=== PATIENT | male | born 1965 | race Caucasian/White ===

== ENCOUNTER 2023-10-01 06:53 | Outpatient (CLI) | payer OTHER, SELFPAY ==
--- NOTE | 2023-10-01 06:59 | CT_ITS ---
FINAL REPORT TECHNIQUE: Axial CT images were performed through the head. Coronal reformatted images were submitted. This study was performed with techniques to keep radiation doses as low as reasonably achievable (ALARA). Individualized dose reduction techniques using automated exposure control or adjustment of mA and/or kV according to the patient's size were employed. CLINICAL HISTORY: PARESTHESIA OF LEFT UPPER LIMB FINDINGS: Mild atrophy is noted. There are small foci of abnormal decreased attenuation in the deep white matter of the left hemisphere probably related to chronic microvascular change. The ventricles are normal in size. There is no evidence of hemorrhage. There is no mass or edema identified. There is no abnormal extra-axial fluid seen. The sinuses are well aerated. IMPRESSION: Chronic changes with no acute intracranial process. Reviewed, Interpreted and Dictated by Abhi Pizarro MD Transcribed by Debora Givens Authenticated and [facility]
== END 2023-10-01 23:59 ==
LOC: RAD 06:53
PROVIDERS: Visit Provider Plastic Surgery
DX: R20.2 Paresthesia of skin (principal)
CPT/HCPCS: 70450

== ENCOUNTER 2024-11-10 15:23 | Emergency (ER) | payer BC, SELFPAY ==
[2024-11-10] VITALS (7 sets, daily range): BP systolic 132–143; BP diastolic 86–96; PULSE 52–75; RESP 13–17; TEMP 36.7–36.8; O2SAT 95–98; BMI 28.2
--- NOTE | 2024-11-10 15:36 | ECG_ITS ---
APPROVED REPORT Exam: Resting ECG HR:57 bpm ECG Measurements Heart Rate 57 AXES PA 185 P 53 QRSd 101 QRS -22 QT 420 T 41 QTc 414 Conclusion SINUS BRADYCARDIA LOW QRS VOLTAGE IN PRECORDIAL LEADS [QRS DEFLECTION < 1.0 mV IN CHEST LEADS] INCOMPLETE RIGHT BUNDLE BRANCH BLOCK [90+ ms QRS DURATION, TERMINAL R IN V1/V2, 40+ ms S IN I/aVL/V4/V5/V6] POSSIBLE ANTERIOR MYOCARDIAL INFARCTION , PROBABLY OLD [30 ms Q WAVE IN V3/V4, OR R < 0.2 mV IN V4] No STEMI Electronically signed by : CARMEN MOLINA, 11/12/2024 03:22:51
--- NOTE | 2024-11-10 15:45 | CT_ITS ---
PROCEDURE INFORMATION: Exam: CT Head Without Contrast Exam date and time: 11/10/2024 4:09 PM Age: 59 years old Clinical indication: Dizziness; Additional info: Diziness/light headed TECHNIQUE: Imaging protocol: Computed tomography of the head without contrast. Radiation optimization: All CT scans at this facility use at least one of these dose optimization techniques: automated exposure control; mA and/or kV adjustment per patient size (includes targeted exams where dose is matched to clinical indication); or iterative reconstruction. COMPARISON: CT HEAD/BRAIN WO CON 01/10/2023 07:03 FINDINGS: Brain: Normal. No hemorrhage. Unremarkable white matter. No mass effect. Cerebral ventricles: No ventriculomegaly. Paranasal sinuses: Partially imaged mucosal thickening in the left maxillary sinus. Mastoid air cells: Visualized mastoid air cells are well aerated. Bones: Unremarkable. No acute fracture. Soft tissues: Unremarkable. IMPRESSION: No acute intracranial abnormality.
--- NOTE | 2024-11-10 15:49 | ED_ITS ---
Discharge Plan Disposition Patient Disposition: Home, Self-Care Prescriptions Prescriptions: No Action prednisone 10 MG tablets,dose pack 10 mg PO DAILY Qty: 42 0RF Rx Instructions: 6 po daily for 2 days, 5 po daily for 2 days, 4 po daily for 2 days, 3 po daily for 2 days, 2 po daily for 2 days, 1 po daily for 2 days. famciclovir 500 MG tablet 500 mg PO TID Qty: 21 0RF Referrals Follow up/Referrals: Carole Hadley APRN [Primary Care Provider] - See instructions Activity Restrictions/Add. Instructions Additional Instructions/Restrictions: No emergent medical condition identified today including cardiopulmonary and vascular systems that were evaluated. Please return with any significant worsening of your symptoms otherwise follow-up closely with your primary care doctor. Clinical Impressions Clinical Impression: Light headedness Print Language Print Language: Setswana Discharge ED Provider: Matilda Burns General Adult HPI General Chief complaint: Neuro Symptoms/Deficit Stated complaint: dizziness, stumbling, sent by doctor for CT Time Seen by Provider: 11/10/24 15:40 History of Present Illness HPI narrative: Patient is a 59-year-old male presenting today with lightheadedness. Was in his normal state of health and woke up this morning and felt as though he was drunk. Stated that he was having difficulty walking and he was stumbling. Denies any symptoms of this in the past. Denies any weakness or numbness in his extremities. 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 Patient went to his primary care doctor today who subsequently sent him in the emergency department. Related Data Previous Rx's ?Medication ?Instructions ?Recorded famciclovir 500 mg tablet 500 mg PO TID #21 tabs 05/09/18 prednisone 10 mg tablets in a dose 10 mg PO DAILY ##42 05/09/18 pack Allergies Allergy/AdvReac Type Severity Reaction Status Date / Time codeine (CODEINE) Allergy Unknown NA-NAUSEA Verified 05/09/18 16:35 [facility] Disclaimer: The information contained in this section may have been updated after the patient was seen, as this information can be updated by other users. Social History Smoking Status: Former smoker alcohol intake: never current occupational status: employed Travel in the last 8 weeks: None Have you lived/traveled outside [place] in past 30 days?: No Contact w/someone who lives/traveled outside US past 30 days?: No Exposure to someone with infectious disease in past 14 days?: No Do you have a fever (greater than 100.4 F or 38 C)?: No Have you tested positive for COVID-19: No Exposed to someone with COVID-19 in past 14 days?: No Do you have a sore throat?: No Do you have a cough?: No Do you have any weakness?: No Do you have any diarrhea?: No Are you experiencing any unusual bleeding?: No Do you have any muscle aches/pain?: No Do you have any abdominal pain?: No Are you experiencing loss of taste or smell?: No Other Medical History Have you received the Flu Vaccine for this season: No Have you received the Pneumonia Vaccine: No ROS Obtained: Yes All systems reviewed & no additional complaints except as documented Physical Exam General General appearance: alert and in no apparent distress Respiratory Respiratory exam: Present normal lung sounds bilaterally; Absent respiratory distress Cardiovascular Cardiovascular exam: Present regular rate and normal rhythm Neurological Exam Neurological exam: Present alert, oriented X3, CN II-XII intact, normal gait and other (Patient appears to have normal finger-nose [id number] bilaterally normal Romberg and normal gait); Absent motor sensory deficit Medical Decision Making Medical Records Screening: Per USPSTF and CDC recommendations, given the prevalence of disease in our region, it is our hospital?s policy to screen for HIV and viral Hepatitis for all patients aged 18 and over and those with ongoing risk factors. Samuel Inquiry Pt receiving controlled substance: No Vital Signs: 11/10/24 15:30 11/10/24 15:49 11/10/24 16:00 Temperature 98.2 F Temperature Source Oral Pulse Rate 59 L 56 L Pulse Rate [Left Radial] 62 Respiratory Rate 13 15 Blood Pressure 143/96 H 132/89 Blood Pressure [Right Arm] 143/96 H Blood Pressure Mean [Right Arm] 111 02 Sat by Pulse Oximetry 97 97 96 11/10/24 16:30 11/10/24 17:00 Temperature Temperature Source Pulse Rate 55 L 52 L Pulse Rate [Left Radial] Respiratory Rate 15 17 Blood Pressure 135/86 137/90 Blood Pressure [Right Arm] Blood Pressure Mean [Right Arm] 02 Sat by Pulse Oximetry 96 95 Lab Data Lab results reviewed: Yes I reviewed the patient's lab results. Lab Results 11/10/24 15:30: POC Glucose 107 11/10/24 15:38: WBC 6.6, RBC 6.17, Hgb 16.7, Hct 49.1, MCV 79.6 L, MCH 27.1, MCHC 34.0, RDW 13.2, Plt Count 195, MPV 10.2, Neut % (Auto) 66.4, Lymph % (Auto) 19.8, [place] % (Auto) 9.8 H, Eos % (Auto) 3.0, Baso % (Auto) 0.8, Neut # (Auto) 4.4, Lymph # (Auto) 1.3, [place] # (Auto) 0.7, Eos # (Auto) 0.2, Baso # (Auto) 0.1, Sodium 142, Potassium 3.9, Chloride 102, Carbon Dioxide 29, Anion Gap 14.9, BUN 13, Creatinine 0.90, Estimated Creat Clear 116, Estimated GFR 86, Est GFR ( Amer) 104, Glucose 108 H, Calcium 9.8, Phosphorus 3.0, Magnesium 2.3, Total Bilirubin 1.0, AST 37, ALT 21, Alkaline Phosphatase 91, Troponin I < 0.01, Total Protein 8.3 H, Albumin 4.8, Globulin 3.5 H, Albumin/Globulin Ratio 1.4, HCV Ab NICOLA w/Rflx PCR Qn Negative, HIV Ag/Ab Combo Qual Negative 11/10/24 15:38 11/10/24 15:38 Orders (Tests/Meds): ED MEDICATIONS Discontinued Medications Generic Name Dose Route Start Last Admin Trade Name Freq PRN Reason Stop Dose Admin Lactated Ringer's 1,000 mls @ 999 mls/hr 11/10/24 15:45 11/10/24 15:55 Lactated Ringer's 1000 Ml Bag IV 11/10/24 16:45 999 mls/hr .Q1H1M MISTY Administration Iopamidol 80 ml 11/10/24 16:18 11/10/24 16:19 Iopamidol-370 (76%);100ml Bottle IV 11/10/24 16:19 80 ml ONCE ONE Administration Sodium Chloride 50 ml 11/10/24 16:18 11/10/24 16:18 0.9 % Sodium Chloride 50 Ml Vial IV 11/10/24 16:19 50 ml ONCE ONE Administration Sodium Chloride 10 ml 11/10/24 16:18 11/10/24 16:18 Sodium Chloride 0.9% 10ml Syr (Rad Only) IV 11/10/24 16:19 10 ml ONCE ONE Administration ORDERS Category Date Time Status CT angio head Stat Cat Scan 11/10/24 15:[address] angio neck Stat Cat Scan 11/10/24 15:[address] head/brain wo con Stat Cat Scan 11/10/24 15:45 Completed CBC w/Auto Diff [Complete Blood Count Auto Diff] Stat Lab 11/10/24 15:38 Completed CMP [Comprehensive Metabolic Panel] Stat Lab 11/10/24 15:38 Completed HIV Combo Stat Lab 11/10/24 15:38 Completed Hepatitis C Ab Qual. W/ RFX Stat Lab 11/10/24 15:38 Completed Magnesium Stat Lab 11/10/24 15:38 Completed POC Glucose,Bedside Routine Lab 11/10/24 15:30 Completed Phosphorous Stat Lab 11/10/24 15:38 Completed Trop I [Troponin I] Stat Lab 11/10/24 15:38 Completed Troponin I Q3H Lab 11/10/24 19:00 Ordered Troponin I Q3H Lab 11/10/24 22:00 Ordered Medical Decision Narrative: 59-year-old with above history and physical. Objectively he appears to have a normal exam. However he describes a feeling of being drunk and staggering when he walks even though not able to reproduce this on exam I would be very concerned about posterior fossa abnormalities and vertebrobasilar insufficiency. Additionally could have electrolyte abnormalities cardiovascular involvement, dehydration etc. Patient does not appear to have any infectious symptoms at the moment. Will get a CT angio of his head neck and noncontrasted CT scan of his head. EKG was unremarkable. Will reassess shortly. CT scan of the patient's head and CT angiography of the head and neck were performed which I personally interpreted which show no evidence of any acute pathology. Radiology reads consistent with this. Labs unremarkable EKG unremarkable on reassessment patient is improved serial cardiopulmonary and neurologic exams are normal. Overall this is nonspecific. Remain some diagnostic uncertainty but is possible that he was mildly dehydrated is the only intervention that was performed today were IV fluids and he is feeling somewhat better with that. Nonetheless no emergent medical condition identified I do not suspect that he needs further inpatient evaluation or management or further emergency intervention. Patient was discharged in stable condition with advised to follow-up close with his primary care doctor. Critical Care Critical Care Time Critical Care Time: No
--- NOTE | 2024-11-10 15:49 | CT_ITS ---
PROCEDURE INFORMATION: Exam: CTA Neck With Contrast Exam date and time: 11/10/2024 4:12 PM Age: 59 years old Clinical indication: Other: Light headed/stumbling TECHNIQUE: Imaging protocol: Computed tomographic angiography of the neck with contrast. Exam focused on the cervical segments of the vasculature. 3D rendering (Not supervised by radiologist): MIP and/or 3D reconstructed images were created by the technologist. Radiation optimization: All CT scans at this facility use at least one of these dose optimization techniques: automated exposure control; mA and/or kV adjustment per patient size (includes targeted exams where dose is matched to clinical indication); or iterative reconstruction. Contrast material: ISO 370; Contrast volume: 80 ml; Contrast route: INTRAVENOUS (IV); COMPARISON: CT ANGIO NECK 11/10/2024 4:12 PM FINDINGS: Right common carotid artery: No stenosis. No dissection or occlusion. Right internal carotid artery: No stenosis of the extracranial segment. No dissection or occlusion. Mild calcified atherosclerosis. Right external carotid artery: No occlusion or stenosis of the origin. Left common carotid artery: No stenosis. No dissection or occlusion. Left internal carotid artery: No stenosis of the extracranial segment. No dissection or occlusion. Mild calcified atherosclerosis. Left external carotid artery: No occlusion or stenosis of the origin. Right vertebral artery: No stenosis. No dissection or occlusion. Left vertebral artery: No stenosis. No dissection or occlusion. Soft tissues: Normal. No significant soft tissue swelling. Bones/joints: Moderate cervical degenerative disc disease at C5-C6 and C6-C7. Moderate degenerative changes at C1-C2. Dental caries and periapical lucencies are noted. IMPRESSION: 1. No acute vascular findings in the neck. 2. 0% right ICA stenosis. 3. 0% left ICA stenosis. 4. The vertebral arteries are patent without stenoses. REFERENCES: NASCET CRITERIA. The degree of stenosis in the cervical segment of the internal carotid artery is based on NASCET criteria. Normal is no stenosis. Mild is less than 50% stenosis. Moderate is 50-69% stenosis. Severe is 70% to 99% stenosis. Total occlusion is no detectable patent lumen.
--- NOTE | 2024-11-10 15:49 | CT_ITS ---
PROCEDURE INFORMATION: Exam: CTA Head With Contrast, Arteriography Exam date and time: 11/10/2024 4:12 PM Age: 59 years old Clinical indication: Dizziness and giddiness; Additional info: Light headed/stumbling TECHNIQUE: Imaging protocol: Computed tomographic angiography of the head with contrast. Exam focused on the arteries. 3D rendering (Not supervised by radiologist): MIP and/or 3D reconstructed images were created by the technologist. Radiation optimization: All CT scans at this facility use at least one of these dose optimization techniques: automated exposure control; mA and/or kV adjustment per patient size (includes targeted exams where dose is matched to clinical indication); or iterative reconstruction. Contrast material: ISOVUE; Contrast volume: 80 ml; Contrast route: INTRAVENOUS (IV); COMPARISON: CT HEAD/BRAIN WO CON 11/10/2024 4:09 PM FINDINGS: ANTERIOR CIRCULATION: Right internal carotid artery: A mild stenosis of the right ICA in the petrous segment. Slight ectasia in the posterior cavernous segment. No high-grade stenosis. No saccular aneurysm. Right middle cerebral artery: No occlusion or significant stenosis. No aneurysm. Right anterior cerebral artery: No occlusion or significant stenosis. No aneurysm. Left internal carotid artery: Intracranial segment is patent with no significant stenosis. No aneurysm. Left middle cerebral artery: No occlusion or significant stenosis. No aneurysm. Left anterior cerebral artery: No occlusion or significant stenosis. No aneurysm. POSTERIOR CIRCULATION: Right vertebral artery: No occlusion or significant stenosis. No aneurysm. Left vertebral artery: No occlusion or significant stenosis. No aneurysm. Basilar artery: No occlusion or significant stenosis. No aneurysm. Right posterior cerebral artery: No proximal right [employer]ING [employer] T[employer]ER occlusion or high-grade stenosis. A mild stenosis in the P2 segment. Left posterior cerebral artery: No occlusion or significant stenosis. No aneurysm. Brain: No definite mass, mass effect, or midline shift. Cerebral ventricles: No ventriculomegaly. Bones/joints: Unremarkable. No acute fracture. Soft tissues: Unremarkable. IMPRESSION: No proximal intracranial arterial occlusion or high-grade stenosis seen.
[2024-11-10] MEDS: LACTATED RINGERS 1000ML 1,000 ML 999 ML IV (15:55)
--- NOTE | 2024-11-10 15:58 | PC.NURSE ---
Radiology notified of CT head/angios to be taken prior to labs return. [facility] states they will take pt shortly.
[2024-11-10 16:08] LABS: Basophils # 0.1 K/mm3 (0-0.2); Basophils % 0.8 % (0.1-2.0); Eosinophils # 0.2 K/mm3 (0.0-0.4); Hematocrit 49.1 % (42.0-52.0); Hemoglobin 16.7 g/dL (14.1-18.0); Lymphocytes # 1.3 K/mm3 (0.7-4.5); Lymphocytes % 19.8 % (10-50); Mean Corpuscular Hemoglobin 27.1 pg (27.0-31.2); Mean Corpuscular Volume 79.6 fl (80-94); Mean Platelet Volume 10.2 fl (7.4-10.4); Monocytes # 0.7 K/mm3 (0.1-1.0); Monocytes % 9.8 % (1.7-9.3); Neutrophils # 4.4 K/mm3 (1.8-7.8); Neutrophils % 66.4 % (37.0-80.0); Platelet Count 195 K/mm3 (142-424); Red Blood Count 6.17 M/mm3 (4.60-6.20); Red Cell Distribution Width 13.2 % (11.5-17.5); White Blood Count 6.6 K/mm3 (4.8-10.8)
[2024-11-10 16:09] LABS: Alanine Aminotransferase 21 U/L (12-78); Albumin Level 4.8 g/dl (3.5-5.0); Albumin/Globulin Ratio 1.4 (1.1-1.8); Alkaline Phosphatase 91 U/L (38-126); Anion Gap 14.9 mEq/L (5-15); Aspartate Amino Transferase 37 U/L (17-59); Blood Urea Nitrogen 13 mg/dl (9-20); Calcium 9.8 mg/dl (8.4-10.2); Carbon Dioxide 29 mmol/L (22.0-30.0); Chloride 102 mmol/L (98-107); Creatinine Clearance Estimated 116 mL/min (50-200); Estimated Glomerular Filt Rate 86 ml/min (>60); GFR (African American) 104 ML/MIN (>60); Globulin 3.5 g/dL (1.3-3.2); Glucose 108 mg/dl (74-100); Magnesium 2.3 mg/dl (1.6-2.3); Potassium 3.9 mmoL/L (3.5-5.1); Sodium 142 mmol/L (136-145); Total Protein,Serum 8.3 g/dl (6.3-8.2)
[2024-11-10] MEDS: SODIUM CHLORIDE 0.9% 10ML SYR (RAD ONLY) 10 ML IV (16:18)
[2024-11-10] MEDS: 0.9 % SODIUM CHLORIDE 50 ML VIAL IV (16:18)
[2024-11-10] MEDS: IOPAMIDOL-370 (76%);100ML BOTTLE 80 ML IV (16:19)
[2024-11-10 16:25] LABS: Troponin I < 0.01 ng/ml (0.00-0.034)
[2024-11-10 16:31] LABS: POC Glucose,Bedside 107 (70-110)
[2024-11-10 16:49] LABS: HIV Combo NEGATIVE (Negative)
[2024-11-10 16:57] LABS: Hepatitis C Ab Qual. W/ RFX NEGATIVE (Negative)
--- NOTE | 2024-11-10 17:13 | PC.NURSE ---
TRN called [facility] and spoke with dot, she will reach out to anamaria about reading of scans.
== END 2024-11-10 18:05 | disposition home or self-care (01) ==
PROVIDERS: Emergency Provider Student in an Organized Health Care Education/Training Program; PCP Nurse Practitioner Family
DX: R00.1 Bradycardia, unspecified (principal); R42 Dizziness and giddiness; R26.2 Difficulty in walking, not elsewhere classified; Z87.891 Personal history of nicotine dependence
CPT/HCPCS: 70450; 70496; 70498; 80053; 82962; 83735; 84100; 84484; 85025; 86803; 87389; 93005; 96360; 99285; J7120; Q9967